=== PATIENT | male | born 1950 | race Caucasian/White ===

== ENCOUNTER 2016-12-01 10:19 | Inpatient (IN) | payer OTHER ==
[~2016-12-01] VITALS: Ht 175.3 cm; Wt 128.4 kg
[~2016-12-01 10:19] MED LIST: ADVIL,NUPRIN,M200 MG PO; AMLODIPINE BESYL5 MG PO; ASCORBIC ACID500 M3 PO; ASPIR-LOW81 MG PO; CELEXA20 MG PO; CRESTOR20 MG PO; IPRATR-ALBUTEROL3 ML IH; LEVAQUIN500 MG PO; LEVAQUIN750 MG PO; LISINOPRIL-HCT1 EAC3 PO; OCUVITE TABLET1 EACH PO; PREDNISONE10 MG PO; SPIRIVA1 INHALATI IH; TYLENOL REGULA325 MG PO
[2016-12-01 10:58] LABS: HEMATOCRIT 52.4 % (38.0-50.0); MCH 28.3 PG (29.0-34.0); MCHC 29.8 G/DL (30.0-36.0); MCV 95.1 FL (86-99); MEAN PLAT.VOLUME 9.7 uM^3 (9.0-12.4); PLATELET COUNT 246 K/uL (156-360); RBC DIS.WIDTH-CV 14.6 % (11.8-14.6); RBC DIS.WIDTH-SD 51.9 % (39-53); RED BLOOD COUNT 5.51 M/uL (4.00-5.50); WHITE BLOOD COUNT 7.2 K/uL (4.1-10.2)
[2016-12-01 11:06] LABS: PTT 28.8 SEC (25-37)
[2016-12-01 11:11] LABS: CHLORIDE 99 mEq/L (99-109); POTASSIUM 4.7 mEq/L (3.7-5.4); SODIUM 140 mEq/L (136-147)
[2016-12-01 11:13] LABS: GLUCOSE 133 mg/dL (70-99)
[2016-12-01 11:14] LABS: ANION GAP 8 MEQ/L (2-14)
[2016-12-01 11:17] LABS: GFR ESTIMATE (CALCULATED) 54 mL/min/
[2016-12-01 11:18] LABS: UREA NITROGEN (BUN) 38 mg/dL (9-23)
[2016-12-01 11:22] LABS: TROP-I INTERPRETATION NEGATIVE; TROPONIN-I 0.04 ng/mL (0.0-0.30)
[2016-12-01 13:28] LABS: ADD MIUA? YES; BILIRUBIN NEGATIVE; BLOOD NEGATIVE; COLOR YELLOW ((YELLOW)); GLUCOSE (STRIP) NEGATIVE; KETONES NEGATIVE; LEUKOCYTES NEGATIVE; NITRITE NEGATIVE; PROTEIN (STRIP) 100; SPECIFIC GRAVITY 1.043 (1.000-1.030)
[2016-12-01 13:42] LABS: BACTERIA NONE SEEN /HPF; EPITHELIAL CELLS RARE /HPF; HYALINE CASTS 15-20 /LPF; MUCUS TRACE /LPF; RED BLOOD CELLS 0-5 /HPF (0-5); UCUL ADDED? YES
[2016-12-01] MEDS ORDERED: DILTIAZEM 24HR180 M3 PO (15:25)
[2016-12-01] MEDS ORDERED: ELIQUIS5 MG PO ×2 (15:26→15:37)
[2016-12-01] MEDS ORDERED: DALIRESP500 MCG PO (15:26)
[2016-12-01] MEDS ORDERED: ADVAIR 500/501 DISK IH (15:27)
[2016-12-01] MEDS ORDERED: CENTRUM SILVER1 EAC3 PO (15:27)
[2016-12-01] MEDS ORDERED: VENTOLIN HFA18 GM IH (15:28)
[2016-12-01] MEDS ORDERED: ANUCORT-HC25 MG PR (15:30)
[2016-12-01 15:33] LABS: MAGNESIUM 2.1 mg/dL (1.3-2.7)
[2016-12-01] MEDS ORDERED: CARDIZEM CD,CA180 MG PO (15:37)
[2016-12-01] MEDS ORDERED: DUONEB 2.5-0.5 M3 ML AEROSOL (15:52)
[2016-12-01 15:56] LABS: HDL CHOLESTEROL 39 MG/DL (Desirable>=40); LDL CHOLESTEROL 79 mg/dL (Desirable<100); NON-HDL CHOLESTEROL 94 mg/dL (Desirable<160); TOTAL CHOLESTEROL 133 mg/dL (Desirable<200); TRIGLYCERIDES 77 MG/DL (Normal: <150)
[2016-12-01 18:18] LABS: TROP-I INTERPRETATION NEGATIVE; TROPONIN-I 0.05 ng/mL (0.0-0.30)
[2016-12-01 19:00] VITALS: BP 134/93
[2016-12-01 21:57] LABS: TROP-I INTERPRETATION NEGATIVE; TROPONIN-I 0.05 ng/mL (0.0-0.30)
[2016-12-01 22:56] VITALS: BP 127/89
[2016-12-02 00:12] LABS: POINT-OF-CARE METER ID UU13113698
[2016-12-02 03:35] VITALS: BP 129/84
[2016-12-02 04:40] LABS: HEMATOCRIT 49.6 % (38.0-50.0); MCH 28.3 PG (29.0-34.0); MCHC 29.4 G/DL (30.0-36.0); MCV 96.1 FL (86-99); MEAN PLAT.VOLUME 9.7 uM^3 (9.0-12.4); PLATELET COUNT 249 K/uL (156-360); RBC DIS.WIDTH-CV 14.6 % (11.8-14.6); RBC DIS.WIDTH-SD 52.4 % (39-53); RED BLOOD COUNT 5.16 M/uL (4.00-5.50); WHITE BLOOD COUNT 5.8 K/uL (4.1-10.2)
[2016-12-02 04:49] LABS: CHLORIDE 101 mEq/L (99-109); SODIUM 140 mEq/L (136-147)
[2016-12-02 04:51] LABS: GLUCOSE 185 mg/dL (70-99)
[2016-12-02 04:52] LABS: ANION GAP 10 MEQ/L (2-14)
[2016-12-02 04:53] LABS: TOTAL BILIRUBIN 0.5 mg/dL (0.0-1.0)
[2016-12-02 04:54] LABS: ALKALINE PHOSPHATASE 80 IU/L (3-129)
[2016-12-02 04:55] LABS: GFR ESTIMATE (CALCULATED) 40 mL/min/
[2016-12-02 04:56] LABS: UREA NITROGEN (BUN) 43 mg/dL (9-23)
[2016-12-02 04:58] LABS: POTASSIUM 6.2 mEq/L (3.7-5.4)
[2016-12-02 06:36] LABS: POINT-OF-CARE METER ID UU13113781
[2016-12-02 06:55] LABS: POINT-OF-CARE METER ID UU13113781
[2016-12-02 08:42] VITALS: BP 137/97
[2016-12-02 12:15] VITALS: BP 109/71
[2016-12-02 12:53] LABS: ANION GAP 11 MEQ/L (2-14); CHLORIDE 97 MEQ/L (99-109); GFR ESTIMATE (CALCULATED) 40 mL/min/; GLUCOSE 146 mg/dL (70-99); SAMPLE HEMOLYSIS CHECK 0; SAMPLE ICTERIC CHECK 0; SAMPLE LIPEMIA CHECK 0; SODIUM 141 MEQ/L (136-147); UREA NITROGEN (BUN) 48 mg/dL (9-23)
[2016-12-02 12:58] LABS: POINT-OF-CARE METER ID UU14174216
[2016-12-02 16:10] VITALS: BP 115/71
[2016-12-02 16:41] LABS: POINT-OF-CARE METER ID UU14174216
[2016-12-02 20:10] VITALS: BP 128/81
[2016-12-03] VITALS: BP 127/84
[2016-12-03 04:50] VITALS: BP 129/89
[2016-12-03 05:31] LABS: CHLORIDE 97 mEq/L (99-109); MAGNESIUM 2.2 mg/dL (1.3-2.7); POTASSIUM 4.9 mEq/L (3.7-5.4); SODIUM 139 mEq/L (136-147)
[2016-12-03 05:33] LABS: GLUCOSE 153 mg/dL (70-99)
[2016-12-03 05:34] LABS: ANION GAP 13 MEQ/L (2-14)
[2016-12-03 05:35] LABS: TOTAL BILIRUBIN 0.4 mg/dL (0.0-1.0)
[2016-12-03 05:37] LABS: ALKALINE PHOSPHATASE 82 IU/L (3-129); EOSINOPHIL (%) 0 % (0-5); GFR ESTIMATE (CALCULATED) 34 mL/min/; HEMATOCRIT 48.4 % (38.0-50.0); IMMATURE GRANULOCYTE (%) 0.4 % (0.0-0.7); INSTRUMENT ABS NEUTROPHIL CT 8.4 K/uL; LYMPHOCYTE COUNT 0.4 K/uL (1.0-2.8); MCH 28.3 PG (29.0-34.0); MCV 94.3 FL (86-99); MEAN PLAT.VOLUME 9.8 uM^3 (9.0-12.4); MONOCYTE (%) 4.3 % (3-12); MONOCYTE COUNT 0.4 K/uL (0-0.8); NEUTROPHIL (%) 91.4 % (45-76); NEUTROPHIL COUNT 8.4 K/uL (1.8-6.4); NRBC (%) 0.3 /100 WBC (0-0); PLATELET COUNT 239 K/uL (156-360); RBC DIS.WIDTH-CV 14.7 % (11.8-14.6); RBC DIS.WIDTH-SD 51.6 % (39-53); RED BLOOD COUNT 5.13 M/uL (4.00-5.50); WHITE BLOOD COUNT 9.2 K/uL (4.1-10.2)
[2016-12-03 05:38] LABS: UREA NITROGEN (BUN) 57 mg/dL (9-23)
[2016-12-03 08:05] VITALS: BP 136/88
[2016-12-03 12:00] VITALS: BP 127/80
[2016-12-03 16:00] VITALS: BP 134/91
[2016-12-03 16:23] LABS: POINT-OF-CARE METER ID UU14174216
[2016-12-03 20:53] VITALS: BP 135/86
[2016-12-03 21:15] LABS: POINT-OF-CARE METER ID UU14174216
[2016-12-04 03:37] VITALS: BP 150/89
[2016-12-04 05:07] LABS: EOSINOPHIL (%) 0 % (0-5); HEMATOCRIT 49.5 % (38.0-50.0); IMMATURE GRANULOCYTE (%) 0.5 % (0.0-0.7); IMMATURE GRANULOCYTE COUNT 0.1 K/uL; INSTRUMENT ABS NEUTROPHIL CT 9.3 K/uL; LYMPHOCYTE COUNT 0.3 K/uL (1.0-2.8); MCH 27.9 PG (29.0-34.0); MCHC 29.7 G/DL (30.0-36.0); MCV 93.9 FL (86-99); MEAN PLAT.VOLUME 9.6 uM^3 (9.0-12.4); MONOCYTE (%) 4.8 % (3-12); MONOCYTE COUNT 0.5 K/uL (0-0.8); NEUTROPHIL (%) 91.5 % (45-76); NEUTROPHIL COUNT 9.3 K/uL (1.8-6.4); PLATELET COUNT 224 K/uL (156-360); RBC DIS.WIDTH-CV 14.6 % (11.8-14.6); RED BLOOD COUNT 5.27 M/uL (4.00-5.50); WHITE BLOOD COUNT 10.2 K/uL (4.1-10.2)
[2016-12-04 05:20] LABS: CHLORIDE 96 mEq/L (99-109); POTASSIUM 5.7 mEq/L (3.7-5.4); SODIUM 137 mEq/L (136-147)
[2016-12-04 05:23] LABS: GLUCOSE 144 mg/dL (70-99); MAGNESIUM 2.9 mg/dL (1.3-2.7)
[2016-12-04 05:24] LABS: ANION GAP 10 MEQ/L (2-14)
[2016-12-04 05:25] LABS: TOTAL BILIRUBIN 0.3 mg/dL (0.0-1.0)
[2016-12-04 05:26] LABS: ALKALINE PHOSPHATASE 75 IU/L (3-129)
[2016-12-04 05:27] LABS: GFR ESTIMATE (CALCULATED) 43 mL/min/
[2016-12-04 05:28] LABS: UREA NITROGEN (BUN) 59 mg/dL (9-23)
[2016-12-04 07:46] LABS: POINT-OF-CARE METER ID UU14174216
[2016-12-04 08:07] VITALS: BP 142/72
[2016-12-04 11:48] LABS: POINT-OF-CARE METER ID UU14174216
[2016-12-04 12:00] VITALS: BP 131/67
[2016-12-04 16:24] LABS: POINT-OF-CARE METER ID UU14174216
[2016-12-04 16:50] VITALS: BP 112/87
[2016-12-04 20:20] VITALS: BP 137/75
[2016-12-04 23:22] VITALS: BP 141/90
[2016-12-05 05:12] VITALS: BP 137/98
[2016-12-05 05:54] LABS: EOSINOPHIL (%) 0 % (0-5); HEMATOCRIT 50.1 % (38.0-50.0); IMMATURE GRANULOCYTE (%) 0.4 % (0.0-0.7); INSTRUMENT ABS NEUTROPHIL CT 8.4 K/uL; LYMPHOCYTE COUNT 0.3 K/uL (1.0-2.8); MCH 27.6 PG (29.0-34.0); MCHC 29.5 G/DL (30.0-36.0); MCV 93.5 FL (86-99); MEAN PLAT.VOLUME 9.7 uM^3 (9.0-12.4); MONOCYTE COUNT 0.9 K/uL (0-0.8); NEUTROPHIL (%) 87.7 % (45-76); NEUTROPHIL COUNT 8.4 K/uL (1.8-6.4); NRBC (%) 0.2 /100 WBC (0-0); PLATELET COUNT 201 K/uL (156-360); RBC DIS.WIDTH-CV 14.5 % (11.8-14.6); RBC DIS.WIDTH-SD 49.8 % (39-53); RED BLOOD COUNT 5.36 M/uL (4.00-5.50); WHITE BLOOD COUNT 9.6 K/uL (4.1-10.2)
[2016-12-05 06:23] LABS: ANION GAP 10 MEQ/L (2-14); CHLORIDE 97 MEQ/L (99-109); GFR ESTIMATE (CALCULATED) 50 mL/min/; GLUCOSE 122 mg/dL (70-99); MAGNESIUM 2.4 mg/dl (1.3-2.7); SAMPLE HEMOLYSIS CHECK 0; SAMPLE ICTERIC CHECK 0; SAMPLE LIPEMIA CHECK 0; SODIUM 142 MEQ/L (136-147); UREA NITROGEN (BUN) 55 mg/dL (9-23)
[2016-12-05 06:25] LABS: POTASSIUM 4.4 MEQ/L (3.7-5.4)
[2016-12-05 07:38] VITALS: BP 154/94
[2016-12-05 08:24] LABS: POINT-OF-CARE METER ID UU14174216
[2016-12-05 11:34] VITALS: BP 154/93
[2016-12-05 15:54] VITALS: BP 156/98
[2016-12-05 19:26] VITALS: BP 164/90
[2016-12-05 21:01] LABS: POINT-OF-CARE METER ID UU13113781
[2016-12-06 00:07] VITALS: BP 149/90
[2016-12-06 05:33] VITALS: BP 158/92
[2016-12-06 07:46] LABS: POINT-OF-CARE METER ID UU13113781
[2016-12-06 08:30] VITALS: BP 141/93
[2016-12-06 11:38] LABS: POINT-OF-CARE METER ID UU13113781
[2016-12-06 15:46] VITALS: BP 143/103
[2016-12-06 17:01] LABS: POINT-OF-CARE METER ID UU13113781
[2016-12-06 20:02] VITALS: BP 137/84
[2016-12-06 23:57] VITALS: BP 135/88
[2016-12-07 04:57] VITALS: BP 150/88
[2016-12-07 05:38] LABS: HEMATOCRIT 49.9 % (38.0-50.0); MCH 28.9 PG (29.0-34.0); MCHC 30.7 G/DL (30.0-36.0); MCV 94.3 FL (86-99); MEAN PLAT.VOLUME 10.2 uM^3 (9.0-12.4); PLATELET COUNT 159 K/uL (156-360); RBC DIS.WIDTH-CV 14.6 % (11.8-14.6); RBC DIS.WIDTH-SD 50.7 % (39-53); RED BLOOD COUNT 5.29 M/uL (4.00-5.50); WHITE BLOOD COUNT 9.9 K/uL (4.1-10.2)
[2016-12-07 06:27] LABS: ANION GAP 8 MEQ/L (2-14); CHLORIDE 96 MEQ/L (99-109); GFR ESTIMATE (CALCULATED) 54 mL/min/; GLUCOSE 115 mg/dL (70-99); POTASSIUM 4.1 MEQ/L (3.7-5.4); SAMPLE HEMOLYSIS CHECK 0; SAMPLE ICTERIC CHECK 0; SAMPLE LIPEMIA CHECK 0; SODIUM 141 MEQ/L (136-147); UREA NITROGEN (BUN) 49 mg/dL (9-23)
[2016-12-07 07:17] VITALS: BP 155/98
[2016-12-07 07:37] LABS: POINT-OF-CARE METER ID UU14174216
[2016-12-07 10:59] VITALS: BP 144/99
[2016-12-07 11:19] LABS: POINT-OF-CARE METER ID UU13113781
[2016-12-07 15:32] VITALS: BP 141/88
[2016-12-07 19:56] VITALS: BP 140/86
[2016-12-08 00:43] VITALS: BP 123/77
[2016-12-08 04:20] VITALS: BP 145/83
[2016-12-08 06:25] LABS: ANION GAP ND MEQ/L (2-14); CARBON DIOXIDE (BICARBONATE) > 40.0 MEQ/L (20-31); CHLORIDE 95 MEQ/L (99-109); GFR ESTIMATE (CALCULATED) 54 mL/min/; GLUCOSE 122 mg/dL (70-99); POTASSIUM 4.1 MEQ/L (3.7-5.4); SAMPLE HEMOLYSIS CHECK 0; SAMPLE ICTERIC CHECK 0; SAMPLE LIPEMIA CHECK 0; SODIUM 143 MEQ/L (136-147); UREA NITROGEN (BUN) 43 mg/dL (9-23)
[2016-12-08 07:30] VITALS: BP 162/89
[2016-12-08 07:52] LABS: POINT-OF-CARE METER ID UU14174216
[2016-12-08 11:11] LABS: POINT-OF-CARE METER ID UU14174216
[2016-12-08 11:59] VITALS: BP 147/85
[2016-12-08 16:21] LABS: POINT-OF-CARE METER ID UU14174216
[2016-12-08 16:34] VITALS: BP 136/94
[2016-12-08 20:23] VITALS: BP 133/88
[2016-12-08 21:45] LABS: POINT-OF-CARE METER ID UU14174216
[2016-12-09] VITALS (8 sets, daily range): BP systolic 128–149; BP diastolic 83–100
[2016-12-09 06:37] LABS: ANION GAP ND MEQ/L (2-14); CHLORIDE 93 MEQ/L (99-109); GFR ESTIMATE (CALCULATED) 59 mL/min/; GLUCOSE 122 mg/dL (70-99); POTASSIUM 4.2 MEQ/L (3.7-5.4); SAMPLE HEMOLYSIS CHECK 0; SAMPLE ICTERIC CHECK 0; SAMPLE LIPEMIA CHECK 0; SODIUM 140 MEQ/L (136-147); UREA NITROGEN (BUN) 40 mg/dL (9-23)
[2016-12-09 06:43] LABS: CARBON DIOXIDE (BICARBONATE) > 40.0 MEQ/L (20-31)
[2016-12-09 07:29] LABS: POINT-OF-CARE METER ID UU14174216
[2016-12-09 11:23] LABS: POINT-OF-CARE METER ID UU14174216
[2016-12-09 16:30] LABS: POINT-OF-CARE METER ID UU14208753
[2016-12-09 21:54] LABS: POINT-OF-CARE METER ID UU14188577
[2016-12-10 03:53] VITALS: BP 142/104
[2016-12-10 06:43] VITALS: BP 148/96
[2016-12-10 07:25] LABS: ANION GAP ND MEQ/L (2-14); CHLORIDE 91 MEQ/L (99-109); GFR ESTIMATE (CALCULATED) > 59 mL/min/; GLUCOSE 102 mg/dL (70-99); POTASSIUM 3.7 MEQ/L (3.7-5.4); SAMPLE HEMOLYSIS CHECK 0; SAMPLE ICTERIC CHECK 0; SAMPLE LIPEMIA CHECK 0; SODIUM 140 MEQ/L (136-147); UREA NITROGEN (BUN) 35 mg/dL (9-23)
[2016-12-10 07:35] LABS: CARBON DIOXIDE (BICARBONATE) > 40.0 MEQ/L (20-31)
[2016-12-10 08:18] VITALS: BP 143/91
[2016-12-10 08:18] LABS: INTER. NORMALIZED RATIO 1.1; PROTHROMBIN TIME 12.5 SEC (10.2-12.9)
[2016-12-10 08:21] LABS: PTT 28.4 SEC (25-37)
[2016-12-10 09:28] LABS: TYPE OF FLUID THORACENTESIS
[2016-12-10 10:23] LABS: BODY FLUID LDH 122 IU/L; BODY FLUID PROTEIN < 3.0 G/DL
[2016-12-10 10:37] LABS: GLUCOSE 105 mg/dL (70-99); LACTATE DEHYDROGENASE 285 IU/L (20-246)
[2016-12-10 11:11] LABS: POINT-OF-CARE METER ID UU14117124
[2016-12-10 11:17] LABS: BODY FLUID WBC'S 170 /MM^3 (0-500); WBC AREA COUNTED 18; WBC DILUTION 1; WHITE CELL RAW COUNT 306
[2016-12-10 11:19] LABS: BODY FLUID EOSINOPHILS 0 % (0-25); MONO RAW COUNT 76; MONONUCLEAR WBC'S 76 %; POLY RAW COUNT 24; POLYNUCLEAR WBC'S 24 % (0-25)
[2016-12-10 11:28] LABS: BODY FLUID RBC'S 2000 /MM^3 (0-100)
[2016-12-10 11:56] VITALS: BP 139/83
[2016-12-10 16:24] VITALS: BP 121/77
[2016-12-10 16:43] LABS: POINT-OF-CARE METER ID UU14117124
[2016-12-10 20:28] VITALS: BP 131/80
[2016-12-11 00:04] VITALS: BP 108/72
[2016-12-11 04:45] VITALS: BP 146/96
[2016-12-11 06:36] LABS: POINT-OF-CARE METER ID UU14117124
[2016-12-11 06:49] LABS: ANION GAP 5 MEQ/L (2-14); CHLORIDE 96 MEQ/L (99-109); GFR ESTIMATE (CALCULATED) > 59 mL/min/; GLUCOSE 105 mg/dL (70-99); POTASSIUM 3.6 MEQ/L (3.7-5.4); SAMPLE HEMOLYSIS CHECK 0; SAMPLE ICTERIC CHECK 0; SAMPLE LIPEMIA CHECK 0; SODIUM 140 MEQ/L (136-147); UREA NITROGEN (BUN) 31 mg/dL (9-23)
[2016-12-11 08:23] VITALS: BP 138/82
[2016-12-11 11:59] VITALS: BP 131/79
[2016-12-11 12:13] LABS: POINT-OF-CARE METER ID UU14117124
[2016-12-11] MEDS ORDERED: DUONEB 2.5-0.5 M3 ML AEROSOL (14:45)
[2016-12-11] MEDS ORDERED: AMOX TR-K CLV1 EAC4 PO (14:45)
[2016-12-11] MEDS ORDERED: SPIRIVA1 INHALATI IH (14:46)
[2016-12-11] MEDS ORDERED: FUROSEMIDE40 MG PO (14:47)
[2016-12-11] MEDS ORDERED: PREDNISONE10 MG PO (14:48)
[2016-12-11 15:35] VITALS: BP 139/87
[2016-12-12] MEDS ORDERED: LISINOPRIL2.5 MG PO (07:45)
== END 2016-12-11 15:48 | disposition home health service (06) | DRG 291 ==
LOC: EME 10:19 → ENRESERV 14:37 → EDOF 14:43 → 4EAST 14:43 → ENRESERV 15:45 → 4EAST 19:04 → ENRESERV 12-09 12:38 → 3EAST 12-09 14:40
PROVIDERS: Emergency Medicine; Family Medicine; Hospitalist; Internal Medicine Nephrology; Internal Medicine Pulmonary Disease; Radiology Diagnostic Radiology
PROC: 0W993ZZ Drainage of Right Pleural Cavity, Percutaneous Approach (ICD-10-PCS; principal; 2016-12-10)
DX: I50.21 Acute systolic (congestive) heart failure (principal); J44.0 Chronic obstructive pulmonary disease with (acute) lower respiratory infection; J18.9 Pneumonia, unspecified organism; I48.2 Chronic atrial fibrillation; J96.21 Acute and chronic respiratory failure with hypoxia; J98.01 Acute bronchospasm; J44.1 Chronic obstructive pulmonary disease with (acute) exacerbation; N17.9 Acute kidney failure, unspecified; E87.6 Hypokalemia; K64.8 Other hemorrhoids; I25.10 Atherosclerotic heart disease of native coronary artery without angina pectoris; I11.0 Hypertensive heart disease with heart failure; E87.5 Hyperkalemia; E87.3 Alkalosis; T50.8X5A Adverse effect of diagnostic agents, initial encounter; I08.1 Rheumatic disorders of both mitral and tricuspid valves; E66.01 Morbid (severe) obesity due to excess calories; G47.33 Obstructive sleep apnea (adult) (pediatric); E78.2 Mixed hyperlipidemia; J98.11 Atelectasis; F41.9 Anxiety disorder, unspecified; G47.00 Insomnia, unspecified; N14.1 Nephropathy induced by other drugs, medicaments and biological substances; Z99.81 Dependence on supplemental oxygen; Z68.41 Body mass index [BMI] 40.0-44.9, adult; I25.2 Old myocardial infarction; Z95.5 Presence of coronary angioplasty implant and graft; Z87.891 Personal history of nicotine dependence
CPT/HCPCS: 71010; 71275; 76770; 76942; 80048; 80048 91; 80053; 80061; 81003; 82945; 82947 91; 82948; 83605; 83615; 83615 91; 83735; 83880; 84100; 84155; 84157; 84484; 85025; 85027; 85379; 85610; 85730; 87040; 87070; 87075; 87086; 87116; 87205; 87206; 88108; 88305; 89051; 93005; 93306; 94010; 94640; 94640 76; 94760; 94799; 97530 GO; 99202; 99281; 99285; J0696; J1120; J1815; J1940; J2930; J7050; J7512

== ENCOUNTER 2017-01-20 15:44 | Inpatient (IN) | payer OTHER ==
[~2017-01-20] VITALS: Ht 175.3 cm; Wt 110.3 kg
[~2017-01-20 15:44] MED LIST changes: +ADVAIR 500/501 DISK IH; +AMOX TR-K CLV1 EAC4 PO; +ANUCORT-HC25 MG PR; +CARDIZEM CD,CA180 MG PO; -CELEXA20 MG PO; +CELEXA40 MG PO; +CENTRUM SILVER1 EAC3 PO; +DALIRESP500 MCG PO; +DILTIAZEM 24HR180 M3 PO; +DUONEB 2.5-0.5 M3 ML AEROSOL; +ELIQUIS5 MG PO; +FUROSEMIDE40 MG PO; +LISINOPRIL2.5 MG PO; +VENTOLIN HFA18 GM IH
[2017-01-20 17:06] LABS: BASOPHIL COUNT 0.1 K/uL (0-0.1); EOSINOPHIL (%) 0.8 % (0-5); EOSINOPHIL COUNT 0.1 K/uL (0-0.3); HEMATOCRIT 46.1 % (38.0-50.0); IMMATURE GRANULOCYTE (%) 0.5 % (0.0-0.7); IMMATURE GRANULOCYTE COUNT 0.1 K/uL; INSTRUMENT ABS NEUTROPHIL CT 7.7 K/uL; LYMPHOCYTE COUNT 1.4 K/uL (1.0-2.8); MCH 27.7 PG (29.0-34.0); MCHC 31.5 G/DL (30.0-36.0); MCV 88.1 FL (86-99); MEAN PLAT.VOLUME 10.2 uM^3 (9.0-12.4); MONOCYTE (%) 9.8 % (3-12); NEUTROPHIL (%) 74.5 % (45-76); NEUTROPHIL COUNT 7.7 K/uL (1.8-6.4); PLATELET COUNT 238 K/uL (156-360); RBC DIS.WIDTH-CV 16.1 % (11.8-14.6); RBC DIS.WIDTH-SD 52.4 % (39-53); RED BLOOD COUNT 5.23 M/uL (4.00-5.50); WHITE BLOOD COUNT 10.4 K/uL (4.1-10.2)
[2017-01-20 17:16] LABS: CHLORIDE 94 mEq/L (99-109); POTASSIUM 4.1 mEq/L (3.7-5.4); SODIUM 139 mEq/L (136-147)
[2017-01-20 17:17] LABS: GLUCOSE 113 mg/dL (70-99)
[2017-01-20 17:19] LABS: ANION GAP 11 MEQ/L (2-14)
[2017-01-20 17:21] LABS: GFR ESTIMATE (CALCULATED) 28 mL/min/
[2017-01-20 17:22] LABS: UREA NITROGEN (BUN) 46 mg/dL (9-23)
[2017-01-20 17:27] LABS: TROP-I INTERPRETATION NEGATIVE; TROPONIN-I 0.01 ng/mL (0.0-0.30)
[2017-01-20 18:25] LABS: ADD MIUA? NO; BILIRUBIN NEGATIVE; BLOOD NEGATIVE; COLOR YELLOW ((YELLOW)); GLUCOSE (STRIP) NEGATIVE; KETONES NEGATIVE; LEUKOCYTES NEGATIVE; NITRITE NEGATIVE; PROTEIN (STRIP) NEGATIVE; SPECIFIC GRAVITY 1.012 (1.000-1.030); UCUL ADDED? NO; UROBILINOGEN 0.2 MG/DL (0.2-1.0)
[2017-01-20] MEDS ORDERED: LISINOPRIL2.5 MG PO (19:48)
[2017-01-20] MEDS ORDERED: FUROSEMIDE40 MG PO (19:48)
[2017-01-20] MEDS ORDERED: DUONEB 2.5-0.5 M3 ML AEROSOL (19:50)
[2017-01-20] MEDS ORDERED: LANOXIN125 MCG PO (19:50)
[2017-01-20] MEDS ORDERED: EFFEXOR75 MG PO (19:50)
[2017-01-20] MEDS ORDERED: SPIRIVA1 INHALATI IH (19:51)
[2017-01-20 22:03] VITALS: BP 97/63
[2017-01-21] VITALS (9 sets, daily range): BP systolic 101–132; BP diastolic 59–77
[2017-01-21 06:48] LABS: EOSINOPHIL (%) 1.4 % (0-5); EOSINOPHIL COUNT 0.1 K/uL (0-0.3); HEMATOCRIT 44.5 % (38.0-50.0); IMMATURE GRANULOCYTE (%) 0.5 % (0.0-0.7); INSTRUMENT ABS NEUTROPHIL CT 4.4 K/uL; LYMPHOCYTE COUNT 1.8 K/uL (1.0-2.8); MCH 27.7 PG (29.0-34.0); MCHC 31.2 G/DL (30.0-36.0); MCV 88.8 FL (86-99); MEAN PLAT.VOLUME 10.5 uM^3 (9.0-12.4); MONOCYTE (%) 12.8 % (3-12); MONOCYTE COUNT 0.9 K/uL (0-0.8); NEUTROPHIL (%) 60.7 % (45-76); NEUTROPHIL COUNT 4.4 K/uL (1.8-6.4); PLATELET COUNT 227 K/uL (156-360); RBC DIS.WIDTH-CV 16.6 % (11.8-14.6); RBC DIS.WIDTH-SD 53.6 % (39-53); RED BLOOD COUNT 5.01 M/uL (4.00-5.50); WHITE BLOOD COUNT 7.3 K/uL (4.1-10.2)
[2017-01-21 07:17] LABS: ALKALINE PHOSPHATASE 60 IU/L (3-129); ANION GAP 9 MEQ/L (2-14); CHLORIDE 100 MEQ/L (99-109); DIRECT BILIRUBIN 0.1 mg/dL (0.0-0.3); GLUCOSE 95 mg/dL (70-99); POTASSIUM 3.9 MEQ/L (3.7-5.4); SAMPLE HEMOLYSIS CHECK 0; SAMPLE ICTERIC CHECK 0; SAMPLE LIPEMIA CHECK 0; SODIUM 141 MEQ/L (136-147); TOTAL BILIRUBIN 0.4 MG/DL (0.0-1.0); UREA NITROGEN (BUN) 38 mg/dL (9-23)
[2017-01-21 07:18] LABS: GFR ESTIMATE (CALCULATED) 46 mL/min/
[2017-01-22 00:43] VITALS: BP 131/81
[2017-01-22 03:39] VITALS: BP 141/74
[2017-01-22 08:30] VITALS: BP 137/89
[2017-01-22 08:49] LABS: HEMATOCRIT 45.2 % (38.0-50.0); MCH 27.7 PG (29.0-34.0); MCV 89.5 FL (86-99); MEAN PLAT.VOLUME 10.3 uM^3 (9.0-12.4); PLATELET COUNT 227 K/uL (156-360); RBC DIS.WIDTH-CV 16.3 % (11.8-14.6); RBC DIS.WIDTH-SD 53.3 % (39-53); RED BLOOD COUNT 5.05 M/uL (4.00-5.50); WHITE BLOOD COUNT 6.6 K/uL (4.1-10.2)
[2017-01-22 09:26] LABS: ANION GAP 6 MEQ/L (2-14); CHLORIDE 104 MEQ/L (99-109); GLUCOSE 100 mg/dL (70-99); SAMPLE HEMOLYSIS CHECK 0; SAMPLE ICTERIC CHECK 0; SAMPLE LIPEMIA CHECK 0; SODIUM 142 MEQ/L (136-147); UREA NITROGEN (BUN) 22 mg/dL (9-23)
[2017-01-22 09:32] LABS: GFR ESTIMATE (CALCULATED) > 59 mL/min/; POTASSIUM 4.7 MEQ/L (3.7-5.4)
[2017-01-22 12:21] VITALS: BP 122/87
[2017-01-22 16:00] VITALS: BP 111/80
[2017-01-22 20:00] VITALS: BP 136/73
[2017-01-23] VITALS: BP 124/60
[2017-01-23 03:46] VITALS: BP 118/70
[2017-01-23 07:41] VITALS: BP 127/64
[2017-01-23 08:28] LABS: HEMATOCRIT 45.8 % (38.0-50.0); MCH 28.2 PG (29.0-34.0); MCHC 31.4 G/DL (30.0-36.0); MCV 89.6 FL (86-99); MEAN PLAT.VOLUME 10.4 uM^3 (9.0-12.4); PLATELET COUNT 201 K/uL (156-360); RBC DIS.WIDTH-CV 16.1 % (11.8-14.6); RBC DIS.WIDTH-SD 53.3 % (39-53); RED BLOOD COUNT 5.11 M/uL (4.00-5.50); WHITE BLOOD COUNT 6.6 K/uL (4.1-10.2)
[2017-01-23 08:56] LABS: ANION GAP 6 MEQ/L (2-14); CHLORIDE 101 MEQ/L (99-109); GFR ESTIMATE (CALCULATED) > 59 mL/min/; GLUCOSE 93 mg/dL (70-99); POTASSIUM 4.4 MEQ/L (3.7-5.4); SAMPLE HEMOLYSIS CHECK 0; SAMPLE ICTERIC CHECK 0; SAMPLE LIPEMIA CHECK 0; SODIUM 139 MEQ/L (136-147); UREA NITROGEN (BUN) 18 mg/dL (9-23)
[2017-01-23] MEDS ORDERED: FUROSEMIDE20 MG PO (11:05)
[2017-01-23 12:00] VITALS: BP 127/84
== END 2017-01-23 12:22 | disposition home or self-care (01) | DRG 683 ==
LOC: EME 15:44 → 5SOUTH 19:46 → EDOF 19:46 → ENRESERV 19:57 → 5SOUTH 21:24 → ENPENDDIS 01-23 → 5SOUTH 01-23 12:22
PROVIDERS: Emergency Medicine; Internal Medicine; Nurse Practitioner Adult Health
DX: N17.9 Acute kidney failure, unspecified (principal); J44.9 Chronic obstructive pulmonary disease, unspecified; I48.2 Chronic atrial fibrillation; I95.1 Orthostatic hypotension; J96.10 Chronic respiratory failure, unspecified whether with hypoxia or hypercapnia; E87.3 Alkalosis; Z87.891 Personal history of nicotine dependence; G47.33 Obstructive sleep apnea (adult) (pediatric); T50.2X5A Adverse effect of carbonic-anhydrase inhibitors, benzothiadiazides and other diuretics, initial encounter; I11.0 Hypertensive heart disease with heart failure; I50.22 Chronic systolic (congestive) heart failure; I25.10 Atherosclerotic heart disease of native coronary artery without angina pectoris; E78.5 Hyperlipidemia, unspecified
CPT/HCPCS: 71010; 80048; 80076; 81003; 84484; 85025; 85027; 93005; 94640; 94640 76; 94799; 99202; 99281; 99284; J7030; J7040